=== PATIENT | male | born 1985 | race Caucasian/White ===

== ENCOUNTER 2025-06-16 09:12 | Emergency (ER) | payer OTHER, SELFPAY ==
[2025-06-16 09:19] VITALS: BP 91/73
[2025-06-16 09:38] VITALS: BP 112/90
[2025-06-16 09:40] VITALS: BP 134/95
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
[2025-06-16 10:00] VITALS: BP 133/96
[2025-06-16 11:27] LABS: Glucose - Point of Care 107 mg/dl (70-99)
[2025-06-16 12:52] VITALS: BP 149/93
== END 2025-06-16 13:08 ==
LOC: EMR 09:12
PROVIDERS: EMERGENCY PHYSICIAN Emergency Medicine
DX: R41.82 Altered mental status, unspecified (principal)
CPT/HCPCS: 99284; 51701; 70450; 80306; 80307; 82962